=== PATIENT | male | born 1990 | race Caucasian/White ===

== ENCOUNTER 2023-12-29 02:57 | Inpatient (IN) | payer MEDICAID ==
[~2023-12-29] VITALS: Ht 182.9 cm; Wt 110.0 kg
[2023-12-29] MEDS ORDERED: NO HOME MEDS (05:16)
[2023-12-29] MEDS: diphenhydrAMINE 25mg capsule PO ONE (05:35)
[2023-12-29] MEDS: LORazepam 1 MG tablet PO ONE (05:35)
[2023-12-29] MEDS: traZODone 50mg tablet PO ONE (05:35)
[2023-12-29 06:10] LABS: ALBUMIN 3.9 G/DL (3.4-5.0); ANION GAP 6 (8-16); BLOOD UREA NITROGEN 20 MG/DL (7-18); BUN/CREATININE RATIO 17.9 (10.0-20.0); CALCIUM 8.9 MG/DL (8.5-10.1); CHLORIDE 104 MMOL/L (99-107); CREATININE 1.12 MG/DL (0.60-1.10); ETHANOL < 10 MG/DL (<10); GLUCOSE 87 MG/DL (70-104); POTASSIUM 3.5 MMOL/L (3.5-5.1); SODIUM 136 MMOL/L (135-145); THYROID STIMULATING HORMONE 3.01 ulU/ml (0.34-4.50); TOTAL CARBON DIOXIDE 26.1 MMOL/L (24-32); eCRCL 103 ML/MIN; eGFR 76 ML/MIN
[2023-12-29 06:16] LABS: BASOPHILS % (AUTO) 0.3 % (0-1); EOSINOPHILS # (AUTO) 0.1 X10'3 (0-0.9); EOSINOPHILS % (AUTO) 1.4 % (0-6); HEMATOCRIT 44.1 % (42.0-52.0); LYMPHOCYTES # (AUTO) 2.8 X10'3 (1.1-4.8); LYMPHOCYTES % (AUTO) 35.3 % (21-51); MEAN CORPUSCULAR VOLUME 85.1 FL (78-98); MEAN PLATELET VOLUME 9.5 FL (7.4-10.4); MONOCYTES # (AUTO) 0.5 X10'3 (0-0.9); MONOCYTES % (AUTO) 6.3 % (2-12); NEUTROPHILS # (AUTO) 4.4 X10'3 (1.8-7.7); NEUTROPHILS % (AUTO) 56.7 % (42-75); PLATELET COUNT 193 X10'3 (140-440); RED BLOOD COUNT 5.18 X10'6 (4.70-6.10); RED CELL DISTRIBUTION WIDTH 13.2 % (11.5-14.5); WHITE BLOOD COUNT 7.8 X10'3 (4.5-11.0)
[2023-12-29 06:18] LABS: URINE AMPHETAMINE SCREEN NEGATIVE (Neg); URINE BARBITUATE SCREEN NEGATIVE (Neg); URINE BENZODIAZEPINES SCREEN NEGATIVE (Neg); URINE CANNABINOID SCREEN NEGATIVE (Neg); URINE COCAINE SCREEN NEGATIVE (Neg); URINE METHADONE SCREEN NEGATIVE (Neg); URINE OPIATE SCREEN NEGATIVE (Neg); URINE PHENCYCLIDINE SCREEN NEGATIVE (Neg)
[2023-12-29 19:02] LABS: BILIRUBIN,URINE NEGATIVE (Neg); CLARITY,URINE CLOUDY (Clear); COLOR,URINE YELLOW (Yellow); GLUCOSE, URINE NEGATIVE (Neg); KETONES,URINE NEGATIVE (Neg); LEUKOCYTE ESTERASE ,URINE NEGATIVE (Neg); OCCULT BLOOD,URINE NEGATIVE (Neg); PROTEIN,URINE NEGATIVE (Neg); UROBILINOGEN,URINE 0.2 E.U/dL (0.2-1.0)
[2023-12-29 19:10] LABS: NITRITES, URINE NEGATIVE (Neg); UA COLLECTION TYPE CLN CATCH MIDSTREAM
[2023-12-29 19:11] LABS: BACTERIA,URINE 1+ /HPF (Neg); MUCUS STRANDS MANY /LPF (Neg); RBC,URINE 0-2 /HPF (0-2); SQUAMOUS EPITHELIAL CELL,UR FEW /LPF (FEW); WBC,URINE 0-4 /HPF (0-4)
[2023-12-29 19:12] LABS: AMORPHOUS URATES 3+
[2023-12-29] MEDS ORDERED: loperamide 2mg capsule PO PRN (21:30)
[2023-12-29] MEDS ORDERED: traZODone 50mg tablet PO ONE (23:41)
[2023-12-29 23:55] VITALS: BP 136/87; PULSE 86; RESP 14; TEMP 98.8; O2SAT 96
[2023-12-30] MEDS: traZODone 50mg tablet PO ONE ×2 (00:17→01:35)
[2023-12-30 05:58] LABS: CHOL/HDL RATIO 5.4 (0.00-4.99); CHOLESTEROL 264 MG/DL (0-200); HDL CHOLESTEROL 49 MG/DL (35-60); LDL CHOLESTEROL 171 MG/DL (50-100); TRIGLYCERIDES 151 MG/DL (20-135)
[2023-12-30 07:15] VITALS: BP 112/67; PULSE 56; RESP 16; TEMP 97.8; O2SAT 97
[2023-12-30 13:34] VITALS: RESP 16; O2SAT 97
[2023-12-30] MEDS: acetaminophen 325mg tablet PO PRN ×2 (13:40→20:55)
[2023-12-30 19:00] VITALS: RESP 18; O2SAT 97
[2023-12-30 20:00] VITALS: BP 112/67; PULSE 57; RESP 18; TEMP 98.8; O2SAT 97
[2023-12-30] MEDS: venlafaxine XR 75mg capsule (Q24H) PO SCH (20:53)
[2023-12-30] MEDS ORDERED: atorvastatin 10mg tablet PO SCH (21:00)
[2023-12-30] MEDS: traZODone 50mg tablet PO PRN (21:39)
[2023-12-31 07:30] VITALS: BP 92/40; PULSE 54; RESP 16; TEMP 97.6; O2SAT 99
[2023-12-31 19:00] VITALS: RESP 16
[2024-01-01] MEDS: temazepam 15mg capsule PO ONE
[2024-01-01 08:00] VITALS: BP 126/80; PULSE 68; RESP 14; TEMP 98.2; O2SAT 98
[2024-01-01 20:00] VITALS: BP 133/73; PULSE 69; RESP 20; TEMP 98; O2SAT 98
[2024-01-01] MEDS: traZODone 150mg tablet PO SCH (20:40)
[2024-01-01] MEDS: docusate sod 100mg capsule PO SCH (20:40)
[2024-01-01] MEDS: traZODone 150mg tablet PO ONE (23:01)
[2024-01-02 08:00] VITALS: BP 98/60; PULSE 58; RESP 16; TEMP 98; O2SAT 95
[2024-01-02 19:00] VITALS: BP 120/84; PULSE 86; RESP 18; TEMP 98.7; O2SAT 96
[2024-01-02] MEDS: traZODone 150mg tablet PO ONE (22:30)
[2024-01-03 08:00] VITALS: BP 100/64; PULSE 78; RESP 16; TEMP 97.8; O2SAT 98
[2024-01-03 19:00] VITALS: BP 129/72; PULSE 79; RESP 16; RESP 18; TEMP 98.3; O2SAT 95; O2SAT 98
[2024-01-03] MEDS: QUEtiapine 25mg tablet PO SCH (20:16)
[2024-01-03] MEDS: divalproex 250mg tablet, delayed-release PO SCH (21:03)
[2024-01-04 07:30] VITALS: RESP 16; O2SAT 98
[2024-01-04] MEDS: divalproex sod 125mg tablet.DR PO SCH (07:43)
[2024-01-04 07:53] VITALS: BP 126/75; PULSE 64; RESP 16; TEMP 98.4; O2SAT 98
[2024-01-04] MEDS: magnesium hydroxide 30ml (MOM) UD suspension PO PRN (09:24)
[2024-01-04 19:00] VITALS: RESP 18; O2SAT 95
[2024-01-04 19:53] VITALS: BP 179/88; PULSE 100; RESP 18; TEMP 98.7; O2SAT 93
[2024-01-05 07:30] VITALS: BP 121/75; PULSE 59; RESP 20; TEMP 98.1; O2SAT 96
[2024-01-05 19:00] VITALS: RESP 18; O2SAT 95
[2024-01-05 20:00] VITALS: BP 134/79; PULSE 84; RESP 18; TEMP 98.5; O2SAT 95
[2024-01-05] MEDS: mag hydrox/Alum hydrox/simeth 30ml oral suspension PO PRN (20:06)
[2024-01-06 07:00] VITALS: RESP 16; O2SAT 97
[2024-01-06 07:20] VITALS: BP 107/64; PULSE 63; RESP 16; TEMP 98.6; O2SAT 97
[2024-01-06] MEDS: BUPROPION HCL 150MG XL 24 HR 150 MG TAB PO SCH (12:03)
[2024-01-06 16:19] LABS: SYPHILIS SCREENING TEST POC NEGATIVE (Negative)
[2024-01-06 19:00] VITALS: RESP 16; O2SAT 97
[2024-01-06 20:00] VITALS: BP 136/80; PULSE 87; RESP 16; TEMP 98.9; O2SAT 97
[2024-01-07 07:14] VITALS: RESP 16; O2SAT 97
[2024-01-07] MEDS: venlafaxine XR 75mg capsule (Q24H) PO SCH (07:55)
[2024-01-07 08:00] VITALS: BP 104/63; PULSE 67; RESP 18; TEMP 97.9; O2SAT 97
[2024-01-07 19:00] VITALS: BP 137/87; PULSE 81; RESP 18; TEMP 98.3; O2SAT 96
[2024-01-08 08:00] VITALS: BP 115/70; PULSE 70; RESP 13; TEMP 98.2; O2SAT 97
[2024-01-08 19:07] VITALS: RESP 18; O2SAT 99
[2024-01-08 19:11] VITALS: BP 140/96; PULSE 74; RESP 18; TEMP 98.2; O2SAT 99
[2024-01-09 07:59] VITALS: BP 103/72; PULSE 68; RESP 16; TEMP 98.4; O2SAT 98
[2024-01-09 19:20] VITALS: RESP 18; O2SAT 100
[2024-01-09 19:22] VITALS: BP 126/84; PULSE 100; RESP 18; TEMP 97.3; O2SAT 98
[2024-01-10 07:00] VITALS: RESP 16; O2SAT 96
[2024-01-10 08:00] VITALS: BP 120/76; PULSE 68; RESP 16; TEMP 98.3; O2SAT 96
[2024-01-10] MEDS ORDERED: ibuprofen tablet 400 MG TABLET PO PRN (19:15)
[2024-01-10 19:18] VITALS: BP 128/86; PULSE 97; RESP 16; TEMP 97.7; O2SAT 99
[2024-01-10] MEDS: ibuprofen 200mg tablet PO PRN (20:07)
[2024-01-10 23:29] LABS: HIV-1 RNA Non Reactive (Non Reactive); HIV-2 RNA Non Reactive (Non Reactive)
[2024-01-11 07:00] VITALS: RESP 12; O2SAT 98
[2024-01-11 08:00] VITALS: BP 92/46; PULSE 72; RESP 12; TEMP 97.8; O2SAT 98
[2024-01-11 19:11] VITALS: RESP 16; O2SAT 98
[2024-01-11 19:14] VITALS: BP 121/85; PULSE 71; RESP 16; TEMP 99.2; O2SAT 98
[2024-01-12 07:05] VITALS: RESP 12; O2SAT 98
[2024-01-12 08:00] VITALS: BP 107/64; PULSE 60; RESP 16; TEMP 97.8; O2SAT 97
[2024-01-12 20:00] VITALS: BP 160/80; PULSE 99; RESP 18; TEMP 97.8; O2SAT 99
[2024-01-13 07:16] VITALS: RESP 12; O2SAT 98
[2024-01-13 08:00] VITALS: BP 100/57; PULSE 65; RESP 16; TEMP 97.8; O2SAT 95
[2024-01-13 19:00] VITALS: PULSE 85; RESP 18; TEMP 98.9; O2SAT 100
[2024-01-13 21:00] VITALS: BP 116/65
[2024-01-14 07:00] VITALS: RESP 16; O2SAT 96
[2024-01-14 08:00] VITALS: BP 97/56; PULSE 54; RESP 16; TEMP 97.7; O2SAT 96
[2024-01-14 19:14] VITALS: BP 134/84; PULSE 75; RESP 16; TEMP 98.6; O2SAT 98
[2024-01-14 19:30] VITALS: RESP 16; O2SAT 98
[2024-01-15 07:00] VITALS: BP 111/66; PULSE 61; RESP 16; TEMP 97.7; O2SAT 97
[2024-01-15 19:00] VITALS: RESP 16; O2SAT 98
[2024-01-15 19:41] VITALS: BP 135/88; PULSE 82; RESP 16; TEMP 98.6; O2SAT 96
[2024-01-16 07:00] VITALS: BP 118/69; PULSE 74; RESP 16; TEMP 97.8; O2SAT 97; O2SAT 98
[2024-01-16] MEDS: divalproex sod 125mg tablet.DR PO SCH (07:47)
[2024-01-16 19:00] VITALS: BP 152/84; PULSE 96; RESP 20; RESP 24; TEMP 97.8; O2SAT 98
[2024-01-17 07:00] VITALS: BP 100/53; PULSE 54; RESP 18; TEMP 98.7; O2SAT 95
[2024-01-17 19:00] VITALS: RESP 16; O2SAT 96
[2024-01-17 20:00] VITALS: BP 139/93; PULSE 110; RESP 22; TEMP 97.2; O2SAT 99
[2024-01-18 07:00] VITALS: BP 106/66; PULSE 54; RESP 18; TEMP 98.3; O2SAT 97
[2024-01-18 19:00] VITALS: RESP 18; O2SAT 96
[2024-01-18 20:00] VITALS: BP 131/79; PULSE 95; RESP 20; TEMP 97.9; O2SAT 99
[2024-01-18] MEDS: zolpidem 5mg tablet PO ONE (20:16)
[2024-01-19 07:00] VITALS: BP 113/73; PULSE 65; RESP 16; RESP 18; TEMP 98.2; O2SAT 97
[2024-01-19 19:00] VITALS: RESP 16; O2SAT 98
[2024-01-19 20:00] VITALS: BP 144/103; PULSE 72; RESP 16; TEMP 99.1; O2SAT 98
[2024-01-19] MEDS: oxcarbazepine 150mg tablet PO SCH (21:19)
[2024-01-19] MEDS: mirtazapine 15mg tablet PO SCH (21:19)
[2024-01-19] MEDS: QUEtiapine 25mg tablet PO SCH (21:20)
[2024-01-20 02:33] VITALS: BP 100/59
[2024-01-20 07:00] VITALS: BP 109/69; PULSE 67; RESP 16; TEMP 98.1; O2SAT 97
[2024-01-20 19:00] VITALS: RESP 20; O2SAT 99
[2024-01-20 20:00] VITALS: BP 138/84; PULSE 85; RESP 20; TEMP 97.7; O2SAT 99
[2024-01-21 06:13] LABS: CHLAMYDIA TRACHOMATIS, NAA Negative (Negative)
[2024-01-21 07:30] VITALS: BP 113/67; PULSE 53; RESP 16; TEMP 97.3; O2SAT 97
[2024-01-21] MEDS: chlorhexidine gluconate 15ml Cup****oral rinse MM SCH ×2 (08:07→20:30)
[2024-01-21 19:00] VITALS: BP 141/96; PULSE 81; RESP 16; TEMP 97.7; O2SAT 99
[2024-01-22] MEDS: QUEtiapine 25mg tablet PO ONE (01:02)
[2024-01-22 07:30] VITALS: BP 100/60; PULSE 60; RESP 16; TEMP 98.4; O2SAT 97
[2024-01-22 19:00] VITALS: RESP 16; O2SAT 98
[2024-01-22 19:32] VITALS: BP 130/80; PULSE 83; RESP 16; TEMP 98.3; O2SAT 98
[2024-01-22] MEDS: QUEtiapine 25mg tablet PO SCH (20:37)
[2024-01-22] MEDS: quetiapine 100mg tablet PO ONE (21:28)
[2024-01-23 07:30] VITALS: BP 107/69; PULSE 56; RESP 16; TEMP 98; O2SAT 97
[2024-01-23 19:25] VITALS: BP 136/69; PULSE 76; RESP 18; TEMP 97.9; O2SAT 98
[2024-01-23 20:00] VITALS: RESP 18; O2SAT 98
[2024-01-23] MEDS ORDERED: QUEtiapine 25mg tablet PO ONE (21:50)
[2024-01-23] MEDS: quetiapine 100mg tablet PO ONE (21:57)
[2024-01-24 07:00] VITALS: BP 97/59; PULSE 50; RESP 17; TEMP 98.4; O2SAT 99
[2024-01-24 20:00] VITALS: BP 127/88; PULSE 84; RESP 16; TEMP 98.9; O2SAT 95
[2024-01-24] MEDS: quetiapine 100mg tablet PO ONE (22:32)
[2024-01-25 08:00] VITALS: BP 116/64; PULSE 69; RESP 16; TEMP 97.9; O2SAT 98
[2024-01-25 19:00] VITALS: RESP 16; O2SAT 97
[2024-01-25 19:36] VITALS: BP 142/95; PULSE 81; RESP 16; TEMP 98; O2SAT 97
[2024-01-25] MEDS: quetiapine 100mg tablet PO ONE (22:43)
[2024-01-26 07:30] VITALS: BP 120/75; PULSE 79; RESP 16; TEMP 98.1; O2SAT 94
[2024-01-26 19:00] VITALS: RESP 22; O2SAT 97
[2024-01-26 20:00] VITALS: BP 120/75; PULSE 92; RESP 22; TEMP 97.8; O2SAT 94
[2024-01-26] MEDS: quetiapine 100mg tablet PO ONE (22:06)
[2024-01-27 08:00] VITALS: BP 111/65; PULSE 61; RESP 16; TEMP 98; O2SAT 96
[2024-01-27] MEDS ORDERED: TRAZ150T78 PO (17:33)
[2024-01-27] MEDS ORDERED: BUPR-94 PO (17:33)
[2024-01-27] MEDS ORDERED: CHLO473M2 MM (17:33)
[2024-01-27] MEDS ORDERED: QUET25TA36 PO (17:33)
[2024-01-27] MEDS ORDERED: OXCA150T14 PO (17:33)
[2024-01-27] MEDS ORDERED: DOCU100C40 PO (17:33)
[2024-01-27] MEDS ORDERED: MIRT-87 PO (17:33)
[2024-01-27 20:00] VITALS: BP 132/89; PULSE 74; RESP 16; TEMP 99; O2SAT 98
[2024-01-27] MEDS: quetiapine 100mg tablet PO ONE (21:22)
[2024-01-28 07:30] VITALS: BP 125/59; PULSE 58; RESP 18; TEMP 98.3; O2SAT 95
[2024-01-28 20:00] VITALS: RESP 16
[2024-01-28] MEDS: quetiapine 100mg tablet PO SCH (21:42)
[2024-01-29 07:15] VITALS: BP 113/66; PULSE 57; RESP 16; TEMP 98.1; O2SAT 97
[2024-01-29 08:46] VITALS: RESP 16; O2SAT 97
[2024-01-29 19:00] VITALS: RESP 18; O2SAT 98
[2024-01-29 20:00] VITALS: BP 133/89; PULSE 79; RESP 18; TEMP 98.6; O2SAT 98
[2024-01-30 08:40] VITALS: BP 131/80; PULSE 83; RESP 16; TEMP 98.2; O2SAT 98
[2024-01-30 08:47] VITALS: RESP 16; O2SAT 98
== END 2024-01-30 15:21 | disposition home or self-care (01) | DRG 753 ==
LOC: ER 02:58 → ED HOLD 18:10 → EEVIPCON 18:10 → UNDOADMIN 18:10 → ADULT MH 20:50 → ED HOLD 20:50 → ADULT MH 21:32
PROVIDERS: ADMIT Psychiatry & Neurology Psychiatry; ATTEND Psychiatry & Neurology Psychiatry
PROC: GZHZZZZ Group Psychotherapy (ICD-10-PCS; principal; 2024-01-01)
PROC: GZ56ZZZ Individual Psychotherapy, Supportive (ICD-10-PCS; 2024-01-01)
DX: F31.81 Bipolar II disorder (principal); R45.851 Suicidal ideations; Z20.822 Contact with and (suspected) exposure to COVID-19; G47.00 Insomnia, unspecified; F41.9 Anxiety disorder, unspecified; E78.5 Hyperlipidemia, unspecified; M25.512 Pain in left shoulder; M54.2 Cervicalgia; Z59.02 Unsheltered homelessness; Z63.0 Problems in relationship with spouse or partner; Z63.5 Disruption of family by separation and divorce; Z79.899 Other long term (current) drug therapy
CPT/HCPCS: 36415; 70490; 73030; 80048; 80061; 80164; 80305; 80320; 81001; 83036; 84443; 85025; 87081; 87491; 87535; 87538; 87811; 99285; Q0163